=== PATIENT | female | born 1990 | race Asian ===

== ENCOUNTER → 2021-12-30 12:58 | Outpatient (CLI) | payer OTHER, SELFPAY ==
--- NOTE | 2021-12-30 | DI.CT.S_ITS ---
PROCEDURE: CT ANGIO HEAD AND NECK INDICATIONS: Personal history of venous thrombosis and embolism TECHNIQUE: Pre-contrast 4.5 mm thick sections acquired from the foramen magnum to the vertex. After the administration of intravenous contrast, 1 mm thick sections acquired from the aortic arch through the [place]. Post-contrast 4.5 mm thick sections then re-acquired from the foramen magnum to the vertex. 3-dimensional ncmidly-emxrtmuph-oixekhwxlo (MIP) and/or volume rendering reformats were acquired of the central intracranial vasculature and neck separately. For radiation dose reduction, the following was used: automated exposure control, adjustment of mA and/or kV according to patient size. COMPARISON: [facility], MR, MR HEAD/BRAIN WO CON, 12/30/2021, 13:19. FINDINGS: Image quality: Mild streak artifact can be seen through the skull base. BRAIN: CSF spaces: Ventricles are normal in size and shape. Basal cisterns are patent. No extra-axial fluid collections. Brain: No midline shift. No intracranial bleeds or masses. [place]-white matter interface appears intact. Skull and face: Calvarium and facial bones appear intact, without suspicious lesions. Orbits appear normal. Sinuses: Sinuses and mastoids are clear. HEAD CT ANGIOGRAPHY: Anterior circulation: Intracranial internal carotid arteries are normal in size and flow. The flow within the paired anterior cerebral arteries is normal and symmetric. The flow within the middle cerebral arteries is normal and symmetric. The anterior communicating artery is seen. No aneurysms are seen. Posterior circulation: The right V4 segment is within normal limits. The left V4 segment is not seen. normal appearing basilar artery. Flow within the posterior cerebral arteries is normal and symmetric. No aneurysms are seen. The intracranial venous sinuses demonstrate an unremarkable appearance, to the limits of this CT angiogram. NECK CT ANGIOGRAPHY: Carotid system: The great vessels demonstrate a conventional anatomy as they arise from the aortic arch. The origins of the common carotid arteries appear patent. The common carotid arteries demonstrate normal caliber and courses. The bifurcation regions are both widely patent. The internal carotid arteries demonstrate normal calibers and courses. Posterior circulation: The origin of the left vertebral artery is highly stenotic. There is poor flow within left vertebral artery. There is almost no flow seen left V4 segment. The right vertebral artery is unremarkable. Soft tissues: Visualized neck soft tissues demonstrate no suspicious abnormalities. Bones: No suspicious bony lesions. Visualized cervical spine appears normally aligned. 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 The right vertebral artery is within normal limits. No carotid abnormality is seen. No additional significant intracranial arterial abnormality is seen. Any quantitative measurements of stenosis were performed using NASCET criteria. Dictated by: Michael Acuna M.D. on 12/30/2021 at 13:49 Approved by: Michael Acuna M.D. on 12/30/2021 at 13:53
--- NOTE | 2021-12-30 | DI.MRI.S_ITS ---
PROCEDURE: MR HEAD/BRAIN WO CON INDICATIONS: Personal history of venous thrombosis and embolism TECHNIQUE: Noncontrast axial T1 spin echo, axial T2 fast spin echo, sagittal and axial FLAIR, coronal T2 fast spin echo, axial gradient echo, axial diffusion and ADC through the brain. COMPARISON: [facility], CT, CT ANGIO HEAD AND NECK, 12/30/2021, 13:51. FINDINGS: No restricted diffusion to indicate recent ischemia. There is loss of the left vertebral artery flow void within the distal cervical segment as well as the V4 segment. Remaining major intracranial vascular flow-related signal voids are maintained. There is no abnormal extra-axial fluid collection, mass effect, midline shift. No unexpected intracranial susceptibility. Normal ventricular caliber and position. The basilar cisterns are patent. No brain parenchymal FLAIR signal abnormality. There is approximately 6 mm bilateral inferior cerebellar tonsillar ectopia. Midline structures are otherwise normal in configuration. No gross orbital abnormality. Paranasal sinuses and mastoid air cells are IMPRESSION: No acute intracranial finding. Complete loss of flow-related signal within the left vertebral artery distal cervical segment and V4 segment. Same day CT angiography of the head and neck demonstrates high-grade left vertebral artery origin stenosis with highly diminished opacification in the remaining left cervical vertebral artery and lack of opacification in the V4 segment. Approximately 6 mm bilateral inferior cerebellar tonsillar ectopia. Dictated by: Cortes Olmos M.D. on 12/30/2021 at 20:23 Approved by: Cortes Olmos M.D. on 12/30/2021 at 20:28
== END ==
PROVIDERS: PCP Student in an Organized Health Care Education/Training Program; Referring Provider Student in an Organized Health Care Education/Training Program; Visit Provider Student in an Organized Health Care Education/Training Program
DX: Q04.8 Other specified congenital malformations of brain (principal); I65.02 Occlusion and stenosis of left vertebral artery; Z86.718 Personal history of other venous thrombosis and embolism
CPT/HCPCS: 70496; 70498; 70551; Q9967